=== PATIENT | female | born 1975 | race African-American/Black ===

== ENCOUNTER 2025-02-24 05:24 | Emergency (ER) | payer OTHER, SELFPAY ==
--- NOTE | ~2025-02-24 | CT_ITS ---
CT of the Abdomen and Pelvis: Indication: Left flank pain Technique: 2.5 mm axial scans were obtained through the abdomen and pelvis following intravenous adm inistration of 100 cc of Omnipaque 350. Dose reduction technique was used on this scan by utilizing a utomated exposure control and iterative reconstruction technique. The dose-length product (DLP) was 1 243.57 mGy-cm. Findings: Scans through the lung bases are unremarkable. The liver, spleen, pancreas, gallbladder, adrenals and left kidney are within normal limits. Probable 2 mm nonobstructing right renal stone. No evidence of aortic aneurysm. No lymphadenopathy. No bowel obstruction or bowel wall thickening. There is no evidence to suggest acute appendicitis. Images through the pelvis were performed. Urinary bladder unremarkable. No pelvic mass seen. No ascit es. Impression: 2 mm nonobstructing right renal stone. No acute abnormality seen. Reviewed, dictated and finalized at [facility]. Impression: 2 mm nonobstructing right renal stone. No acute abnormality seen.
[2025-02-24 05:28] VITALS: BP 133/83; PULSE 85; RESP 15; TEMP 36.4; O2SAT 99
[2025-02-24 05:54] LABS: Basophils Absolute Auto 0.1 K/mm3 (0.0-0.1); Basophils Percent Auto 0.8 % (0.2-1.2); Eosinophils Absolute Auto 0.1 K/mm3 (0-0.3); Eosinophils Percent Auto 1.3 % (0-4.4); Hematocrit 35.8 % (37.0-47.0); Hemoglobin 11.3 g/dL (12.0-15.0); Immature Granulocyte Absolute 0.01 K/mm3 (0.00-0.031); Immature Granulocyte Percent A 0.2 % (0-0.5); Lymphocytes Absolute Auto 2.68 K/mm3 (0.9-3.2); Lymphocytes Percent Auto 43.6 % (18.3-44.2); Mean Corpuscular HGB Conc 31.6 g/dl (32-36); Mean Corpuscular Hemoglobin 28.8 pg (26-34); Mean Corpuscular Volume 91.3 fl (80-100); Mean Platelet Volume 10.3 fl (7.4-10.4); Monocytes Absolute Auto 0.9 K/mm3 (0.1-0.6); Neutrophils Absolute Auto 2.5 K/mm3 (1.3-6.7); Neutrophils Percent Auto 40.1 % (45.5-73.1); Platelet Count Result 294 k/mm3 (150-375); Red Blood Count 3.92 M/mm3 (4.2-5.4); Red Cell Distribution Width 12.9 % (11.5-14.5); White Blood Count 6.1 K/mm3 (4.5-10.0)
--- NOTE | 2025-02-24 05:55 | ED_ITS ---
HPI - Abdominal Pain General Chief Complaint: Abdominal Pain <Pamela Eldridge MD - Last Filed: 02/24/25 17:34> Stated Complaint: possible kidney stone <Pamela Eldridge MD - Last Filed: 02/24/25 17:34> Time Seen by Provider: 02/24/25 05:32 <Pamela Eldridge MD - Last Filed: 02/24/25 17:34> Source: patient <Pamela Eldridge MD - Last Filed: 02/24/25 17:34> Mode of arrival: ambulatory <Pamela Eldridge MD - Last Filed: 02/24/25 17:34> Limitations: no limitations <Pamela Eldridge MD - Last Filed: 02/24/25 17:34> History of Present Illness HPI narrative: Patient presents with left flank pain radiating into her abdomen. It is associated with nausea and vomiting. She notes that approximately a week ago she had gastroenteritis that lasted for several days. Her symptoms then resolved and bowel movements started to become formed again on Thursday. This was her last bowel movement. Nonbloody bowel movements and nonbloody emesis. She denies any vaginal discharge or vaginal bleeding. She is postmenopausal, LMP 6 years ago. No hematuria or dysuria. She has had urine urinary frequency increased as well as decreased urine output. Has never seen urologist although previously had a kidney stone. No fevers or chills. She had routine labs performed on Thursday and noted that her GFR was 22. 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 No prior GI including no colonoscopy; used cologuard. 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 HEAD: Normocephalic, atraumatic. EYES: Non injected, non icteric ENT: Nares clear, no rhinorrhea or epistaxis. Gross auditory acuity intact. NECK: Supple. No meningismus. CHEST: Speaking in full sentences. No respiratory distress. HEART: Regular rate and rhythm. . ABDOMEN: Soft, nondistended. No rigidity or guarding. Not peritoneal. No tenderness to palpation throughout. Back/: No CVA tenderness bilaterally. EXTREMITIES: Normal range of motion. No lower extremity edema. SKIN: Warm, dry, no rash. NEURO: No focal deficits. Alert and oriented. Answering questions. Following commands. Normal speech without aphasia or dysarthria. PSYCH: Normal mood and affect. <Pamela Eldridge MD - Last Filed: 02/24/25 17:34> Course Vital Signs Vital signs: Vital Signs Temperature 97.6 F 02/24/25 05:28 Pulse Rate 85 02/24/25 05:28 Respiratory Rate 15 02/24/25 05:28 Blood Pressure 133/83 02/24/25 05:28 Pulse Oximetry 99 02/24/25 05:28 Oxygen Delivery Room Air 02/24/25 05:28 Temperature 97.6 F 02/24/25 05:28 Pulse Rate 72 02/24/25 08:50 Respiratory Rate 18 02/24/25 08:50 Blood Pressure 110/74 02/24/25 08:50 Pulse Oximetry 100 02/24/25 08:50 Oxygen Delivery Room Air 02/24/25 05:28 <Pamela Eldridge MD - Last Filed: 02/24/25 17:34> Vital Signs Temperature 97.6 F 02/24/25 05:28 Pulse Rate 85 02/24/25 05:28 Respiratory Rate 15 02/24/25 05:28 Blood Pressure 133/83 02/24/25 05:28 Pulse Oximetry 99 02/24/25 05:28 Oxygen Delivery Room Air 02/24/25 05:28 Temperature 97.6 F 02/24/25 05:28 Pulse Rate 72 02/24/25 08:50 Respiratory Rate 18 02/24/25 08:50 Blood Pressure 110/74 02/24/25 08:50 Pulse Oximetry 100 02/24/25 08:50 Oxygen Delivery Room Air 02/24/25 05:28 <Javi Webber III, DO - Last Filed: 02/24/25 18:02> MDM - Abdominal Pain MDM Narrative Medical decision making narrative: Patient presents with left flank pain radiating towards her abdomen. In the emergency department they are afebrile with vital signs within normal limits. Creatinine is elevated with no prior for comparison. Patient notes that she had not been told she had any baseline kidney dysfunction however she had been reviewing her labs over this past week and was concerned because it appeared that she was CKD stage IIIB for awhile. Thus, will presume CKD rather than danial NOLAN. No leukocytosis. Normocytic anemia with no prior for comparison. Patient reassessed at approximately 8:00 a.m.. She states her pain is coming back as is her nausea. Kidney stone does not appear appear to be in a location where should be causing pain but possible component of renal colic and/or possibly recently passed a stone. Signed out pending urine and reassessment. <Pamela Eldridge MD - Last Filed: 02/24/25 17:34> Patient presents with left flank pain radiating towards her abdomen. In the emergency department they are afebrile with vital signs within normal limits. Creatinine is elevated with no prior for comparison. Patient notes that she had not been told she had any baseline kidney dysfunction however she had been reviewing her labs over this past week and was concerned because it appeared that she was CKD stage IIIB for awhile. Thus, will presume CKD rather than danial NOLAN. No leukocytosis. Normocytic anemia with no prior for comparison. Patient reassessed at approximately 8:00 a.m.. She states her pain is coming back as is her nausea. Kidney stone does not appear appear to be in a location where should be causing pain but possible component of renal colic and/or possibly recently passed a stone. Signed out pending urine and reassessment. assumed care pending ua. ua unremarkable. will discharge on tramadol with follow up to monitor renal function. <Javi Webber III, DO - Last Filed: 02/24/25 18:02> Differential Diagnosis Differential diagnosis: Likely abdominal pain, calculus of kidney, constipation, diverticulitis, small bowel obstruction and other (Gastroenteritis/colitis/enteritis) <Pamela Eldridge MD - Last Filed: 02/24/25 17:34> Lab Data Attestation: I reviewed the patient's lab results. <Pamela Eldridge MD - Last Filed: 02/24/25 17:34> Result diagrams: 02/24/25 05:47 02/24/25 05:47 <Pamela Eldridge MD - Last Filed: 02/24/25 17:34> Labs: Lab Results 02/24/25 02/24/25 Range/Units 05:47 07:44 WBC 6.1 (4.5-10.0) K/mm3 RBC 3.92 L (4.2-5.4) M/mm3 Hgb 11.3 L (12.0-15.0) g/dL Hct 35.8 L (37.0-47.0) % MCV 91.3 (80-100) fl MCH 28.8 (26-34) pg MCHC 31.6 L (32-36) g/dl RDW 12.9 (11.5-14.5) % Plt Count 294 (150-375) k/mm3 MPV 10.3 (7.4-10.4) fl Immature Gran % (Auto) 0.2 (0-0.5) % Neut % (Auto) 40.1 L (45.5-73.1) % Lymph % (Auto) 43.6 (18.3-44.2) % Mccracken % (Auto) 14.0 H (2.6-8.5) % Eos % (Auto) 1.3 (0-4.4) % Baso % (Auto) 0.8 (0.2-1.2) % Lymph # (Auto) 2.68 (0.9-3.2) K/mm3 Mccracken # (Auto) 0.9 H (0.1-0.6) K/mm3 Eos # (Auto) 0.1 (0-0.3) K/mm3 Baso # (Auto) 0.1 (0.0-0.1) K/mm3 Abs Immat Gran (auto) 0.01 (0.00-0.031) K/mm3 Absolute Neuts (auto) 2.5 (1.3-6.7) K/mm3 Absolute Nucleated RBC 0.000 (0.0-0.012) K/mm3 Nucleated RBC % 0.0 (0.0-0.2) % Sodium 140 (137-145) mmol/L Potassium 3.9 (3.4-5.0) mmol/L Chloride 103 (98-107) mmol/L Carbon Dioxide 27 (22-30) mmol/L Anion Gap 10 (4-12) mmol/L BUN 26 H (7-17) mg/dL Creatinine 1.42 H (0.7-1.0) mg/dL Estim Creat Clear Calc 48 ml/min Estimated GFR 39 L (59 - ) Glucose 102 (65-110) mg/dL Calcium 9.8 (8.4-10.2) mg/dL Magnesium 1.9 (1.6-2.3) mg/dL Total Bilirubin 0.3 (0.2-1.3) mg/dL AST 35 (14-36) U/L ALT 29 (6-35) U/L Alkaline Phosphatase 101 (38-126) U/L Total Protein 8.0 (6.3-8.2) g/dL Albumin 4.7 (3.5-5.1) g/dL Lipase 145 (23-300) U/L Urine Color Yellow (Yellow) Urine Appearance Clear (Clear) Urine pH 6.0 (5.0-9.0) Ur Specific Cosmos > 1.045 H (1.001-1.035) Urine Protein Negative (Negative) mg/dL Urine Glucose (UA) Negative (Negative) mg/dL Urine Ketones Negative (Negative) mg/dL Ur Blood (Man) Negative (Negative) Urine Nitrate Negative (Negative) Urine Bilirubin Negative (Negative) Urine Urobilinogen 0.2 (<2.0) mg/dL Leukocyte Esterase Rfl Negative (Negative) ANTHONY/UL <Pamela Eldridge MD - Last Filed: 02/24/25 17:34> Lab Results 02/24/25 02/24/25 Range/Units 05:47 07:44 WBC 6.1 (4.5-10.0) K/mm3 RBC 3.92 L (4.2-5.4) M/mm3 Hgb 11.3 L (12.0-15.0) g/dL Hct 35.8 L (37.0-47.0) % MCV 91.3 (80-100) fl MCH 28.8 (26-34) pg MCHC 31.6 L (32-36) g/dl RDW 12.9 (11.5-14.5) % Plt Count 294 (150-375) k/mm3 MPV 10.3 (7.4-10.4) fl Immature Gran % (Auto) 0.2 (0-0.5) % Neut % (Auto) 40.1 L (45.5-73.1) % Lymph % (Auto) 43.6 (18.3-44.2) % Mccracken % (Auto) 14.0 H (2.6-8.5) % Eos % (Auto) 1.3 (0-4.4) % Baso % (Auto) 0.8 (0.2-1.2) % Lymph # (Auto) 2.68 (0.9-3.2) K/mm3 Mccracken # (Auto) 0.9 H (0.1-0.6) K/mm3 Eos # (Auto) 0.1 (0-0.3) K/mm3 Baso # (Auto) 0.1 (0.0-0.1) K/mm3 Abs Immat Gran (auto) 0.01 (0.00-0.031) K/mm3 Absolute Neuts (auto) 2.5 (1.3-6.7) K/mm3 Absolute Nucleated RBC 0.000 (0.0-0.012) K/mm3 Nucleated RBC % 0.0 (0.0-0.2) % Sodium 140 (137-145) mmol/L Potassium 3.9 (3.4-5.0) mmol/L Chloride 103 (98-107) mmol/L Carbon Dioxide 27 (22-30) mmol/L Anion Gap 10 (4-12) mmol/L BUN 26 H (7-17) mg/dL Creatinine 1.42 H (0.7-1.0) mg/dL Estim Creat Clear Calc 48 ml/min Estimated GFR 39 L (59 - ) Glucose 102 (65-110) mg/dL Calcium 9.8 (8.4-10.2) mg/dL Magnesium 1.9 (1.6-2.3) mg/dL Total Bilirubin 0.3 (0.2-1.3) mg/dL AST 35 (14-36) U/L ALT 29 (6-35) U/L Alkaline Phosphatase 101 (38-126) U/L Total Protein 8.0 (6.3-8.2) g/dL Albumin 4.7 (3.5-5.1) g/dL Lipase 145 (23-300) U/L Urine Color Yellow (Yellow) Urine Appearance Clear (Clear) Urine pH 6.0 (5.0-9.0) Ur Specific Cosmos > 1.045 H (1.001-1.035) Urine Protein Negative (Negative) mg/dL Urine Glucose (UA) Negative (Negative) mg/dL Urine Ketones Negative (Negative) mg/dL Ur Blood (Man) Negative (Negative) Urine Nitrate Negative (Negative) Urine Bilirubin Negative (Negative) Urine Urobilinogen 0.2 (<2.0) mg/dL Leukocyte Esterase Rfl Negative (Negative) ANTHONY/UL <Javi Webber III, DO - Last Filed: 02/24/25 18:02> Imaging Data Radiologist's impression: ITS Impressions Abdomen/Pelvis CT 02/24/25 06:28 Impression: 2 mm nonobstructing right renal stone. No acute abnormality seen. <Pamela Eldridge MD - Last Filed: 02/24/25 17:34> ITS Impressions Abdomen/Pelvis CT 02/24/25 06:28 Impression: 2 mm nonobstructing right renal stone. No acute abnormality seen. <Javi Webber III, - Last Filed: 02/24/25 18:02> Discharge Plan Discharge Clinical Impression: CKD (chronic kidney disease), Normocytic anemia, Right renal stone, Renal colic <Pamela Eldridge MD - Last Filed: 02/24/25 17:34> Patient Disposition: Home <Pamela Eldridge MD - Last Filed: 02/24/25 17:34> Condition: Stable <Pamela Eldridge MD - Last Filed: 02/24/25 17:34> Instructions: Antibiotic Form, Kidney Stones (ED), Renal Colic (ED) <Pamela Eldridge MD - Last Filed: 02/24/25 17:34> Patient Language: Namibian <Pamela Eldridge MD - Last Filed: 02/24/25 17:34> Prescriptions: New tramadol 50 mg tablet 50 mg PO Q6H PRN (Reason: pain) Qty: 10 0RF <Pamela Eldridge MD - Last Filed: 02/24/25 17:34> Follow-up/Referrals: Kaz,Karlie Colney [employer]SEMBLER [Primary Care Provider] - <Pamela Eldridge MD - Last Filed: 02/24/25 17:34> Stand Alone Forms: Work/School Release IP <Pamela Eldridge MD - Last Filed: 02/24/25 17:34>
[2025-02-24 06:03] LABS: Alanine Aminotransferase 29 U/L (6-35); Albumin Level 4.7 g/dL (3.5-5.1); Alkaline Phosphatase 101 U/L (38-126); Anion Gap 10 mmol/L (4-12); Aspartate Amino Transferase 35 U/L (14-36); Bilirubin,Total 0.3 mg/dL (0.2-1.3); Blood Urea Nitrogen 26 mg/dL (7-17); Calcium 9.8 mg/dL (8.4-10.2); Carbon Dioxide 27 mmol/L (22-30); Chloride 103 mmol/L (98-107); Estimated CRCL calculation 48 ml/min; Estimated Glomerular Filt Rate 39; Glucose 102 mg/dL (65-110); Lipase 145 U/L (23-300); Potassium 3.9 mmol/L (3.4-5.0); Sodium 140 mmol/L (137-145)
[2025-02-24] MEDS: ONDANSETRON INJ 4 MG/2 ML VIAL IV PUSH (06:08)
--- OUTSIDE RECORDS SUMMARY | 2025-02-24 06:09 | XMS_ITS | Encounter Summary ---
Author Organization [facility] Address 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 Name Role Phone Unavailable Primary Care Provider Unavailabl e Encounter Details Date Type Department Care Team (Late st Contact Info) Description 09/09/2002 Outpatient Historical [facility] Maternal and Ground Floor [address] [facility] [address] [place] [address] Lilia Ford MD [address] [place] [address] Social History Tobacco Use Types Packs/Day Years Used Date Smoking Tobacco: Never Assessed Comments Unknown Sex and Gender Information Value Date Recorded Sex Assigned at Not on file Legal Sex Female 4:21 AM [employer]VE[employer] Gender Identity Not on file Sexual Orientation Not on file documented as of this encounter Plan of Treatment Not on file documented as of this encounter Visit Diagnoses Not on filedocumented in this encounter
--- OUTSIDE RECORDS SUMMARY | 2025-02-24 06:09 | XMS_ITS | Clinical Summary ---
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 Name Role Phone Unavailable Primary Care Provider Unavailabl e Encounters Date Type Department Care Team Description 02/21/2025 External Device Data [facility] ABSTRACTION Provider, Abstract 01/17/2025 External Device Data [facility] ABSTRACTION Provider, Abstract 12/21/2024 External Device Data [facility] ABSTRACTION Provider, Abstract 12/13/2024 External Device Data [facility] ABSTRACTION Provider, Abstract 12/13/2024 External Device Data [facility] ABSTRACTION Provider, Abstract 12/10/2024 External Device Data [facility] ABSTRACTION Provider, Abstract 12/09/2024 External Device Data [facility] ABSTRACTION Provider, Abstract 12/06/2024 External Device Data ST[facility] ABSTRACTION Provider, Abstract from Last 3 Months Social History Tobacco Use Types Packs/Day Years Used Date Smoking Tobacco: Never Assessed Comments Unknown Sex and Gender Information Value Date Recorded Sex Assigned at Not on file 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
--- OUTSIDE RECORDS SUMMARY | 2025-02-24 06:09 | XMS_ITS | CONTINUITY OF CARE DOCUMENT ---
Author Name eduardo debbiejerzy Address Unknown Organization [facility] Address [address] [place] [address] [address] [place] [address] Phone [phone] Care Team Providers Care Strip Mine Supervisor Name Role Phone Jesus PORTILLO, Angel Unavailable [phone] WINIFRED WOLF MD Unavailable [phone] WINIFRED WOLF MD Unavailable PROBLEMS Condition Status Date Provider Notes H/o Chronic DVT, LLE completed - Muse esther Lee MD HTN active Jose Sylvester MD Hypercoagulable state active Jose Sylvester MD Acute DVT of leg, right active Angel Lee MD Pulmonary embolism active Angel Lee MD Fatigue active Sravani oNrton RN Palpitations active Sravani Norton RN ENCOUNTERS Date Type Provider Location Encounter Diag nosis - In-person encounter Office Visit [facility] - In-person encounter Office Visit [facility] - In-person encounter Office Visit [facility] Palpitations - In-person encounter Office Visit [facility] Fatigue - In-person encounter Office Visit [facility] H/o Chronic DVT, LLE Acute DVT of leg, rightPulmonary embolism - In-person encounter Office Visit Jose Sylvester MD [facility] HTNHypercoagulable state VITAL SIGNS Date Observation Value Provider Body Mass Index (Ratio) 32.95 kg/m2 Sund rafita Lee MD blood pressure, diastolic 95 mm[Hg] Ke rri Gruenenfelder blood pressure, systolic 127 mm[Hg] Ker ri Gruenenfelder blood pressure, cuff size large Ke rri Gruenenfelder oxygen saturation, oximetry 98 % Jenn Zak respiratory rate E&M 14 /min Jenn Cony brantleyenesuhaseldann-marie pulse rate 75 /min Jenn Gruenenfe lder weight E&M 198 [lb_av] Jenn Grlucianonenfe lder height E&M 65 [in_i] Jenn Meiruenenfe er Body Mass Index (Ratio) 36.27 kg/m2 Sund rafita Lee MD blood pressure, cuff size large Blaire winchester [place] blood pressure, diastolic 80 mm[Hg] Blaire [place]ster [place] blood pressure, systolic 120 mm[Hg] [facility] sharon [place] oxygen saturation, oximetry 98 % Camila Pete respiratory rate E&M 16 /min Janet Pete pulse rate 82 /min Camila ritter weight E&M 218 [lb_av] Camila ritter height E&M 65 [in_i] Camila ritter Body Mass Index (Ratio) 36.27 kg/m2 Ernesto Norton RN pulse rate 84 /min Ness Block blood pressure, diastolic 80 mm[Hg] Br ittany Block blood pressure, systolic 130 mm[Hg] Angelica ttany Block oxygen saturation, oximetry 97 % Ness Fan weight E&M 218 [lb_av] Ness Mita blood pressure, resting No Tosin Fan respiratory rate E&M 16 /min Britoscar haynes Block height E&M 65 [in_i] Ness Fan Body Mass Index (Ratio) 37.04 kg/m2 Susannahr panchito Norton RN blood pressure, diastolic, standing 80 mm [Hg] Alma Shrestha blood pressure, systolic, standing 100 mm [Hg] Alma Henrietta blood pressure, diastolic 70 mm[Hg] Rh onda [place] blood pressure, systolic 110 mm[Hg] Rho nda [place] blood pressure, cuff size regular Rh onedin [place] oxygen saturation, oximetry 98 % Alma Shrestha respiratory rate E&M 16 /min Alma Shrestha pulse rate 77 /min Alma Shrestha weight E&M 222.6 [lb_av] Alma Shrestha height E&M 65 [in_i] Alma Shrestha Body Mass Index (Ratio) 38.44 kg/m2 Dave Lee MD blood pressure, diastolic 62 mm[Hg] Rh onda [place] blood pressure, systolic 120 mm[Hg] Rho nda [place] blood pressure, cuff size regular Rh onedin [place] oxygen saturation, oximetry 97 % Alma Shrestha respiratory rate E&M 16 /min Almavivien Shrestha pulse rate 89 /min Alma Shrestha weight E&M 231 [lb_av] Alma Shrestha height E&M 65 [in_i] Alma Shrestha blood pressure, diastolic 86 mm[Hg] Ak andrew Hi blood pressure, systolic 118 mm[Hg] Rosemarie brownvivien Do pulse rate 71 /min Winifred Hi oxygen saturation, oximetry 98 % Winifred Do respiratory rate E&M 16 /min Winifred Do Body Mass Index (Ratio) 35.91 kg/m2 Oralia Do height E&M 65 [in_i] Winifred Do weight E&M 215.8 [lb_av] Winifred Do ALLERGIES No Known Drug Allergies HISTORY OF MEDICATION USE Medication Status Instructions Dates Provider Indications Com ments Ozempic 0.25 mg or 0.5 mg(2 mg/1.5 mL) pen injector active Annabelle A Manpreet [employer]IAN olmesartan-hydro chlorothiazide 40-25 mg tablet active Annabelle A Case [employer]ICIAN Xarelto 20 mg tablet active 2 tablet by mouth once a day 1 Angel Lee MD bupropion HCl 300 mg tablet extended release 24 hr active tablet by mouth once a day Camila Pete diclofenac potassium unspecified unspecified active tablet by mouth twice a day Camila Pete Hyzaar 100-25 mg tablet completed 1 tablet by mouth once a day 4 - 0 Annabelle Case [employer]CH[employer]ICIAN Xarelto 15 mg tablet completed 2 tablet by mouth once a day 4 - 1 Alma Shrestha ASPIRIN 325 MG ORAL TABLET completed once daily - 4 Alma Shrestha BENICAR HCT 40-25 MG ORAL TABLET completed one tablet once daily - 4 Alma Shrestha SOCIAL HISTORY Date Observation Value Provider smoking status Never smoker Jenn engel smoking status Never smoker Camila Pan social history reviewed E&M revi ewed - no changes required Sravani Norton RN smoking status Never smoker Ness woody social history reviewed E&M revi ewed - no changes required Angel Lee MD smoking status Never smoker Alma Shrestha smoking status Never smoker Alma Shrestha social history E&M Alcohol Use - no D rug Use - no Smoking History: P atient has never smoked. Jose Sylvester MD drug use no Jose Ritter alcohol use no Jose Ritter social history reviewed E&M eugene gracia - no changes required Jose Sylvester MD smoking status Never smoker Winifred Do FAMILY HISTORY Family Member Condition Full Brother Family History of Bl ood Clots Father Family History of Hy pertension Father Family History of Al coholism Mother Family History of Hy pertension Mother Family History of Al coholism Maternal Grandmother Family History of S troke/CVA INSURANCE PROVIDERS Payer name Policy type / Coverage type [place] red libertarian ID [facility] [id number] ADVANCE DIRECTIVES Name Date LIVING WILL ON FILE TREATMENT PLAN Date Name Performer [id number],C, B P today: 127/95 P rior BP: 120/80 (07/15/2021) Annabelle Case [employer] TECH[employer]ICIAN [id number],C, L LE edema ,chronic d enies RLE edema Annabelle Case NP [id number],C, on oac d oing well Annabelle A Manpreet BAUTISTA [id number],S,M tHfR insufficienycy o n oac d oing well Annabelle Mclain Case [employer]CH[employer]ICIAN [id number],S, S he has episodes of tachycardia every few months and her heart rate goes up to 120 at rest and 190 with activity and lasts for a few days. Her [facility] watch tracings were reviewed and looks like a sinus tachycardia. e pidsodes are 2-3 x per month last an average of 30minutes. a ppear much improved and will leave it be. Annabelle Case NP [id number],C,wc Angel Edin lundberg MD [id number],C,o n oac d oing well Angelrafita Lee MD [id number],C, S he has another surgery 2019 and was off oac and this time she did fine. o n oac d oing well Angel Lee MD [id number],C,S he has episodes of tachycardia every few months and her heart rate goes up to 120 at rest and 190 with activity and lasts for a few days. Her [employer] watch tracings were reviewed and looks like a sinus tachycardia. could be snrt o ptions of rx - leave it be vs dig (has low bp and this may be a good choice) or eps or AAD with 1c agent d/wpt s he wishes to leave it be for now as these episodes are infrequent Angelleilani Lee MD Cardiology: B P today: 127/95 P rior BP: 120/80 (07/15/2021) Annabelle Case NP Cardiology: L LE edema ,chronic d enies RLE edema Annabelle Case NP Cardiology: on oac stone cravenfloyd casa Case NP Cardiology:MtHfR ins ufficienycy o n oac stone cormier Annabelle Case NP Cardiology: S he has episodes of tachycardia every few months and her heart rate goes up to 120 at rest and 190 with activity and lasts for a few days. Her [employer] watch tracings were reviewed and looks like a sinus tachycardia. e pidsodes are 2-3 x per month last an average of 30minutes. a ppear much improved and will leave it be. Annabelle Case NP Cardiology:wc Angel Lee MD Cardiology:on oac stone cravenfloyd casa Lee MD Cardiology: S he has another surgery 2019 and was off oac and this time she did fine. o n oac stone Lee MD Cardiology:She has e pisodes of tachycardia every few months and her heart rate goes up to 120 at rest and 190 with activity and lasts for a few days. Her [employer] watch tracings were reviewed and looks like a sinus tachycardia. could be snrt o ptions of rx - leave it be vs dig (has low bp and this may be a good choice) or eps or AAD with 1c agent d/wpt s he wishes to leave it be for now as these episodes are infrequent Angel Lee MD Cardiology: H er updated medication list for this problem includes: Hyzaar 100-25 Mg Oral Tablet (Losartan potassium-hctz) ..... 1 tab daily Sravani Norton RN Cardiology:to have a nkle surgery h x of pe with last surgery on holding oac o k to have surgery but needs to be off xarelto only two days preop and resume right after Sravani Norton RN Cardiology:on oac Sravani Diana on RN Cardiology:She has h ad episodes dizziness with tachycardia and hr of 120-130 - usalluy lasts 2-3 days and then resolves. Last episode was 02/21. She thinks its due to PE. r ecommend ekg at time of sx or apple watch Sravani Norton RN Cardiology:cbc, tsh, vit d, ferritin, esr, iron sats, d dimer, ebv, rich, folate, hb A1c, crp, RF normal B 12 305 c a 10.5 a dvised to get B12 po 2000 mg once daily and recheck in 2 months a lso check pth levels a lso will do ihs Angel Lee MD Cardiology:LLE edema ,chronic d enies RLE edema Angel Lee MD Cardiology:She had a n episode 02/2019 where she felt chest pressure, SOB, fatigue. CTA (per pt) showed some shadowing, inconclusive study. The next day, she felt 100% better and CTA looked completely clear. 02/2019 echo showed normal LVEF, normal atrial size bilaterally, normal RV, PA 28. 3 weeks ago, she started feeling bad again. She felt dizzy in shower, sat down after shower and started feeling better. Stood up and almost passed out. Vision went woodward. Denies syncope. Ever since then, she is getting dizzy easily, HR goes up quickly with exertion, baseline HR higher by 20 points than it used to be, feels like she can't quite get a good deep breath in, mild chest pressure. Most of these symptoms occur with exertion. echo today showed normal study d dimer in 04/22 was 0.19 Angel Lee MD Cardiology:continues on xarelto Angel Lee MD Cardiology:BP today: 110/70 P rior BP: 120/62 (12/06/2018) Angel Lee MD Cardiology:PE, DVT p ost foot and ankle surgery - was off oac and was on asa alone when this happene Angel Lee MD Cardiology:PE, DVT p ost foot and ankle surgery - was off oac and was on asa alone when this happened- hx of hypercoagulability with MTHFR deficiency Angel Lee MD Cardiology:PE, DVT p ost foot and ankle surgery - was off oac and was on asa alone when this happened s ob 60% better s till cant carry a laundry basket up a flight of stairs S till tachycardic B P ok echo in 6 months Angel Lee MD Hem/Onc:The patient has had one confirmed provoked DVT and another uncomfirmed provoked DVT. The patient states that she had a hypercoaguable work up prior and was homozygous for MTHFR gene mutation. Recent studies have shown little evidence of associated link between MTHFR mutation and thrombosis risk. I have asked her to bring these records in for review. Given her recurrent loss, I will evaluate for possible antiphospholipid syndrome. She will continue baby ASA for now. Orders: L UPUS ANTICOAGULANT EVALUATION WITH REFLEX ([id number]) A nticardiolipin Ab, IgG, Qn (960663) A nticardiolipin Ab, IgM, Qn (246062) A nticardiolipin Ab, IgA, Qn (971210) B eta-2 Glycoprotein I Ab, IgA (917434) B eta-2 Glycoprotein I Ab, IgG (699456) B eta-2 Glycoprotein I Ab, IgM (714702) 9 9244 MOD C omplex ([id number]) Jose Sylvester MD Date Name Beta-2 Glycoprotein I Ab, IgM Beta-2 Glycoprotein I Ab, IgG Beta-2 Glycoprotein I Ab, IgA Anticardiolipin Ab, IgA, Qn Anticardiolipin Ab, IgM, Qn Anticardiolipin Ab, IgG, Qn LUPUS ANTICOAGULANT EVALUATION WITH REFLEX HISTORY OF PROCEDURES Procedure Date Procedure Name Provider Procedure Notes S tatus EKG Angelrafita Lee MD completed EKG Angel Lee MD completed EKG Angel Lee MD completed EKG Angelrafita Lee MD completed EKG Angelrafita Lee MD completed SNOMED-CT: [id number] Current Medications Documented Jose Sylvester MD completed
--- OUTSIDE RECORDS SUMMARY | 2025-02-24 06:09 | XMS_ITS | Clinical Summary ---
Author Organization [facility] Address [address] [place] [address] Care Team Providers Care Restaurant Floor Manager Name Role Phone Robby Berman MD Unavailable [phone] Araceli Duque MD Unavailable [phone] Valerie Schilling MD Unavailable [phone] Amador Abraham OD Unavailable [phone] Jade Moss MD Primary Care Provider [phone] Source Comments [facility],non-owned Affiliates and Associated Physician Practices is amultiple site organization consisting of ambulatory clinics and hospital sitesin [place], [place], [place] and [place]. This disclosure is being madepursuant to the Care Everywhere program and may not contain all information available regarding this patient. Last updated 18.[facility] Allergies Active Allergy Reactions Criticality Noted Date Comments Adhesive Sensitivity 10/17/2014 Medications * Be aware that medications may not be up to date on this document. Alwaysverify current medications with the patient. multivitamin daily (THERAGRAN) tablet Take 1 Tab by mouth daily with food. Active losartan-hydroc hlorothiazide (HYZAAR) 100-25 MG tablet 6 Active triamcinolone acetonide (KENALOG) 0.1 % ointment APPLY 1 APPLICATION(S) TWICE A DAY BY TOPICAL ROUTE NEEDED. 2 6 Active aspirin (ASPIRIN) 325 MG tablet Take 325 mg by mouth once daily Active Glucosamine-Cho ndroitin (GLUCOSAMINE CHONDR COMPLEX PO) Active oxyCODONE-aceta minophen (PERCOCET) 5-325 MG tablet Take 1 Tab by mouth every 4 hours as needed for Pain 30 Tab 0 6 Active Additional Information Patient not taking.Reported on 08/03/2017 progesterone micronized (PROMETRIUM) 200 MG capsule TAKE 1 TAB BY MOUTH EVERYDAY X 14 DAYS THEN 14 DAYS OFF 4 7 Active benzonatate (TESSALON) 100 MG capsule 7 Active montelukast (SINGULAIR) 10 MG tablet TAKE 1 TABLET(S) EVERY DAY BY ORAL ROUTE. 0 7 Active buPROPion XL 24hr (WELLBUTRIN-XL) 300 MG tablet Take 300 mg by mouth once daily 1 Active XARELTO 20 MG tablet 1 Active diclofenac sodium EC (VOLTAREN) 75 MG tablet 1 Active Active Problems Problem Noted Date Diagnosed Date Elevated glucose 04/05/2014 Preoperative examination 02/12/2012 Disorder of joint of pelvic region and thigh Overview (07/05/2015): Hip pain 01/16/2012 Sprain of ankle 01/16/2012 Overview (07/05/2015): Ankle pain, right 03/21/2011 Contact dermatitis 05/03/2010 DVT (deep venous thrombosis) 01/10/2010 Overview (01/10/2010): Due to bcp's and an injury. Environmental allergies 01/10/2010 HTN (hypertension) 02/06/2009 Overview (01/10/2010): Dr. Antonella Qureshi 02/06/2009 Overview (01/10/2010): Heavy periods and diet related. Resolved Problems Problem Noted Date Diagnosed Date Resolved Date DVT (deep venous thrombosis) 02/06/2009 01/10/2010 Overview (02/06/2009): 2000 Post depression 02/06/200903/05 Immunizations Immunization Administration Dates Next Due DT 02/02/2005 INFLUENZA A [id number] VACCINE 08/05/2009 INFLUENZA VACCINE 07/05/2009,08/05/2006 TDAP (7yrs+) 10/05/2005 Family History Medical History Relation Name Comments Hypertension Brother CAD (Coronary Artery Disease) Father Hypertension Father Relation Name Status Comments Brother Father Social History Tobacco Use Types Packs/Day Years Used Date Smoking Tobacco: Never Smokeless Tobacco: Never Alcohol Use Standard Drinks/Week Comments Yes 0 (1 standard drink = 0.6 oz pur e alcohol) socially Comments No Sex and Gender Information Value Date Recorded Sex Assigned at Not on file Legal Sex Female 4:24 AM MATHEMATICS PROFESSOR Gender Identity Not on file Sexual Orientation Not on file 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 [employer] Not on file Not on file Not on fi le Not on file Not on file Not on file Not on file Last Filed Vital Signs Vital Sign Reading Time Taken Comments Blood Pressure 130/78 03/25/2021 4:29 PM CDT Pulse 89 09/14/2017 1:07 PM MATHEMATICS PROFESSOR Temperature 35.9 C (96.6 F) 06/30/2016 8:59 AM CDT Respiratory Rate 16 06/30/2016 9:55 AM CDT Oxygen Saturation 97% 06/30/2016 9:55 AM CDT Inhaled Oxygen Concentration - - Weight 97.1 kg (214 lb) 03/25/2021 4:29 PM CDT Height 162.6 cm (5' 4 ) 03/25/2021 4:29 PM CDT Body Mass Index 36.73 03/25/2021 4:29 PM CDT Plan of Treatment Health Maintenance Due Date Last Done Comments COLOGUARD (AGES 45-75) - COLON CA SCREENING 1973 COLON MONITORING 1973 COLONOSCOPY - COLON CA SCREENING 1973 CT COLONOGRAPHY - COLON CA SCREENING 1973 Colorectal Cancer Screening 1973 FIT - COLON CA SCREENING 1973 FLEX SIG - COLON CA SCREENING 1973 HEPATITIS C SCREENING 08/10/1991 HEPATITIS B VACCINE (1 of 3 - 19+ 3-dose series) 1992 DTAP/TDAP/TD VACCINES (3 - Td or Tdap) 10/05/2015 10/05/2005, 02/02/2005 MAMMOGRAM 05/14/2018 05/14/2016, 11/06/2014 LIPID TESTING 04/04/2019 04/04/2014, 03/2012, 01/10/2010 SCREENING FOR DIABETES 03/25/2021 6, 04/04/2014, 04/04/2014, Additional history exists PNEUMOCOCCAL VACCINE 50+ (1 of 1 - PCV) 2023 ZOSTER VACCINE (1 of 2) 2023 COVID-19 VACCINE (1 - season) 2024 DEPRESSION SCREENING 10/05/2024 INFLUENZA VACCINE (Season Ended) 2025 08/05/2009, 07/05/2009, 08/05/2006 PAP with HPV 03/25/2026 03/25/2021, 07/07, 03/05/2016, Additional history exists HIV SCREENING Completed 12/02/2013 HIB VACCINE Aged Out No longer eligi ble based on patient's age to complete this topic HPV VACCINE Aged Out No longer eligi ble based on patient's age to complete this topic MENINGOCOCCAL (Group B) VACCINE SHARED DECISION-MAKING Aged Out No longer eligible based on patient's age to complete this topic MENINGOCOCCAL GROUPS A/C/Y/W VACCINE Aged Out No longer eligible based on patient's age to complete this topic Procedures Procedure Name Priority Date/Time Associated Diagnosis Comments PAP IG LB +HPV APTIMA REFLEX 16,18/45 Routine 03/25/2021 4:31 PM CDT Well female exam with routine gynecological exam Special screening examination for human papillomavirus (HPV) MAMMOGRAPHY ORDER Routine 05/14/2016 COMPREHENSIVE METABOLIC PANEL STAT 10/21/2015 4:35 AM MATHEMATICS PROFESSOR LIPID PROFILE Routine 04/04/2014 11:17 AM CDT Lipid screening HIV-1 HIV-2 ANTIBODY Routine 12/02/2013 10:03 AM MATHEMATICS PROFESSOR Anemia, unspecified from Last 3 Months or Most Recently Relevant to Health Maintenance Results * (ABNORMAL) PAP IG LB +HPV APTIMA REFLEX 16,18/45 (03/25/2021 4:31 PM CDT) Diagnosis (A) [facility] ACCOUNT BILL Comment: EPITHELIAL CELL ABNORMALITY. ATYPICAL SQUAMOUS CELLS OF UNDETERMINED SIGNIFICANCE (ASC-US). Recommendation (A) [facility] ACCOUNT BILL Comment:Suggest follow up as clinically appropriate. Specimen Adequacy [facility] ACCOUNT BILL Comment: Satisfactory for evaluation. Endocervical and/or squamous metaplastic cells (endocervical component) are present. Clinician Provided ICD10 [facility] ACCOUNT BILL Comment: Z01.419 Z11.51 Performed by [facility] ACCOUNT BILL Comment:Jose Alejandro Hernandez totechnologist Electronically Signed by [facility] ACCOUNT BILL Comment:Dominick Price MD, Pa thologist Comment . [facility] ACCOUNT BILL Pathologist Provided ICD10 [facility] ACCOUNT BILL Comment:R87.610 Note [facility] ACCOUNT BILL Comment: The Pap smear is a screening test designed to aid in the detection of premalignant and malignant conditions of the uterine cervix. It is not a diagnostic procedure and should not be used as the sole means of detecting cervical cancer. Both false-positive and false-negative reports do occur. . IGLBP CPT Code Automation [facility] ACCOUNT BILL Comment: This liquid based ThinPrep(R) pap test was screened with the use of an image guided system. Human papillomavirus Aptima Negative Negative [facility] ACCOUNT BILL Comment: This nucleic acid amplification test detects fourteen high-risk HPV types (16,18,31,33,35,39,45,51,52,56,58,59,66,68) without differentiation. PART OF UTERINE CERVIX / Unknown 03/25/2021 4:31 PM CDT 03/26/2021 Narrative [facility] ACCOUNT BILL - 03/27/2021 6:07 PM CDT Source.............Cervix;Endocervix No. of containers..01 ThinPrep Vial Resulting Agency Comment Lab Testing performed at: [facility] [id number] us Peg King MD LAB - PATHOLOGY/CYTOLOGY ORDER HARDIK Final Result [facility] ACCOUNT BILL [address] [place] [address] * MAMMOGRAPHY ORDER (05/14/2016) Anatomical Region Laterality Modality Other us Henrietta Morataya BIOFUELS PRODUCT DEVELOPMENT MANAGER-NUCLEAR PHYSICIAN MAMMO ORDERABLES Final Re sult * (ABNORMAL) COMPREHENSIVE METABOLIC PANEL (10/21/2015 4:[address] [facility]) Glucose 99 74 - 106 mg/dL 10/21/2015 5:01 AM [facility] Sodium 138 136 - 145 mmol/L 10/21/2015 5:01 AM [facility] Potassium 3.7 3.5 - 5.1 mmol/L 10/21/2015 5:01 AM [facility] Chloride 104 98 - 107 mmol/L 10/21/2015 5:01 AM [facility] CO2 28 22 - 31 mmol/L 10/21/2015 5:01 AM [facility] Calcium 8.6 8.5 - 10.1 mg/dL 10/21/2015 5:01 AM [facility] Anion Gap 6 5 - 20 mmol/L 10/21/2015 5:01 AM [facility] BUN 14 7 - 21 mg/dL 10/21/2015 5:01 AM [facility] Creatinine 1.10 0.50 - 1.30 mg/dL 10/21/2015 5:01 AM [facility] Alkaline Phosphatase 86 38 - 126 U/L 10/21/2015 5:01 AM [facility] ALT 26 12 - 78 U/L 10/21/2015 5:01 AM [facility] AST 21 5 - 40 U/L 10/21/2015 5:01 AM [facility] Protein Total 7.8 6.4 - 8.2 gm/dL 10/21/2015 5:01 AM [facility] Albumin 3.9 3.4 - 5.0 gm/dL 10/21/2015 5:01 AM [facility] Bilirubin Total 0.1(L) 0.2 - 1.0 mg/dL 10/21/2015 5:01 AM [facility] eGFR by MDRD 54(L) >60 mL/min/1.7 3m2 10/21/2015 5:01 AM [facility] eGFR by MDRD >60 >60 mL/min/1.7 3m2 10/21/2015 5:01 AM [facility] Blood BLOOD SPECIMEN / Unknown 10/21/2015 4:35 AM MATHEMATICS PROFESSOR 10/21/2015 4:41 AM MATHEMATICS PROFESSOR Joselo Rose MD LAB - CHEMISTRY ORDERABLES Fi nal Result [facility] [address] [place] [address] * LIPID PROFILE (04/04/2014 11:17 AM CDT) Cholesterol 182 100 - 199 mg/dL [facility] ACCOUNT BILL Triglycerides 99 0 - 149 mg/dL [facility] ACCOUNT BILL HDL Cholesterol 68 >39 mg/dL [facility] ACCOUNT BILL Comment: According to ATP-III Guidelines, HDL-C >59 mg/dL is considered a negative risk factor for CHD. VLDL Calculated 20 5 - 40 mg/dL [facility] ACCOUNT BILL LDL Calculated 94 0 - 99 mg/dL [facility] ACCOUNT BILL Comment NOT NEEDED [facility] ACCOUNT BILL Comment:Ancillary determined the test is not needed Blood specimen (specimen) BLOOD SPECIMEN / Unknown 04/04/2014 11:17 AM CDT 04/04/2014 12:43 PM CDT Narrative Resulting Agency Comment [facility] [address] [place] [id number] Vaishali Truong MD LAB - CHEMISTRY ORDERABLES Fin al Result Performing Organization Address City/[facility] Co de Phone Number [facility] ACCOUNT BILL [address] [place] [address] * HIV-1 HIV-2 ANTIBODY (12/02/2013 10:03 AM MATHEMATICS PROFESSOR) HIV-1 Antibody O.D. Ratio <1.00 <1.00 [facility] INSURANCE BILL Comment:Index Value: Specime n reactivity relative to the negative cutoff. HIV-1/HIV-2 Non Reactive Non Reactive [facility] INSURANCE BILL Blood specimen (specimen) BLOOD SPECIMEN / Unknown 12/02/2013 10:03 AM MATHEMATICS PROFESSOR 12/02/2013 12:58 PM MATHEMATICS PROFESSOR Narrative Resulting Agency Comment [facility] [address] [facility] [id number] us Peg King MD LAB - CHEMISTRY ORDERABLES Fin al Result [facility] INSURANCE BILL [address] [place] [address] from Last 3 Months or Most Recently Relevant to Health Maintenance Insurance [employer] Care Teams Restaurant Floor Manager Relationship Specialty Start Date End Date Jade Moss MD [address] [place] [address] [place] [id number] PCP - General Family Medicine 10/21/15 [place] [address] [place] [address] Cardiovascular Disease 11/08/11 [place] [address] [place] [address] Obstetrics and Gynecology 04/04/14 Valerie Schililng MD [address] [place] [address] Orthopedic Surgery 04/04/14 Amador Abraham OD [facility] [address] [place] [address] Mainstreaming Facilitator 04/04/14
--- OUTSIDE RECORDS SUMMARY | 2025-02-24 06:09 | XMS_ITS | Encounter Summary ---
Author Organization [facility] Address 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
--- OUTSIDE RECORDS SUMMARY | 2025-02-24 06:09 | XMS_ITS | Referral Summary ---
Author Organization [facility] Address [address] [place] [address] Care Team Providers Care Regional Medical Director Name Role Phone Juliana Orozco NP Primary Care Provider [phone] Allergies No known active allergies Medications losartan-hydroc hlorothiazide (HYZAAR) 100-25 mg per tablet Take 1 tablet by mouth daily Active rivaroxaban (XARELTO) 20 mg tabletIndicatio ns:Venous Thrombosis Take 1 tablet (20 mg total) by mouth daily. Start on day 22 (after taking 15mg BID for 21 days) 90 tablet 3 11/26/2018 Active buPROPion XL (WELLBUTRIN XL) 300 mg 24 hr tablet Take 1 tablet (300 mg total) by mouth daily 10/05/[address] (CYMBALTA) 60 mg capsule Take 1 capsule (60 mg total) by mouth daily 06/18/[address] (VOLTAREN) 75 mg EC tablet Take 1 tablet (75 mg total) by mouth 2 (two) times a day 02/01/2021 Active amoxicillin-cla vulanate (AUGMENTIN) 875-125 mg per tablet Take 1 tablet by mouth every 12 (twelve) hours for 7 days 07/21/2023 Active hydroCHLOROthia zide (HYDRODIURIL) 12.5 mg tablet Take 1 tablet (12.5 mg total) by mouth daily Active olmesartan (BENICAR) 40 mg tablet Take 1 tablet (40 mg total) by mouth daily Active Active Problems Problem Noted Date Diagnosed Date Labile hypertension 07/22/2023 Palpitations 06/22/2023 Hypertension 06/22/2023 Venous thromboembolism 06/22/2023 Social History Tobacco Use Types Packs/Day Years Used Date Smoking Tobacco: Never Tobacco Cessation:Counseling Given: Not Answered Alcohol Use Standard Drinks/Week Comments No 0 (1 standard drink = 0.6 oz pur e alcohol) Personal Safety Answer Date Recorded Have you ever been in or are you currently in a harmful physical or emotional relationship or is someone making you feel afraid or unsafe? 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 Gender Identity Not on file Sexual Orientation Not on file Last Filed Vital Signs Vital Sign Reading Time Taken Comments Blood Pressure 160/100 08/03/2023 12:10 PM CDT Pulse 81 07/22/2023 8:17 AM CDT Temperature 36.7 C (98 F) 11/26/2018 5:00 AM FLASH OVEN OPERATOR Respiratory Rate 18 11/26/2018 5:00 AM FLASH OVEN OPERATOR Oxygen Saturation 98% 07/22/2023 8:17 AM CDT Inhaled Oxygen Concentration - - Weight 96.3 kg (212 lb 6.4 oz) 07/22/2023 8:17 A M CDT Height 165.1 cm (5' 5 ) 07/22/2023 8:17 AM CDT Body Mass Index 35.35 07/22/2023 8:17 AM CDT Plan of Treatment [place] [address] [place] [address] [email or web address] [address] [email or web address] [place] [facility] ACCESS Advance Directives For more information, please contact: [phone] * Full Code (Latest Code Status on File) Date Activated Date Inactivated Comments 11/25/2018 3:18 PM 11/26/2018 1:22 PM Care Teams Regional Medical Director Relationship Specialty [place] [address] [place] [address] PCP - General Family Medicine 04/20/24
--- OUTSIDE RECORDS SUMMARY | 2025-02-24 06:09 | XMS_ITS | Clinical Summary ---
Author Organization [facility] D Address [address] [place] [address] Care Team Providers Care Bunch Breaker Machine Operator Name Role Phone Juliana Orozco NP Primary Care Provider [phone] Allergies No known active allergies Medications losartan-hydroc [...] Palpitations 06/22/2023 Hypertension 06/22/2023 Venous thromboembolism 06/22/2023 Surgical History Surgery Date Site/Laterality Comments ANKLE SURGERY Right Medical History Medical History Date Comments Hypertension Family History Medical History Relation Name Comments Hypertension Brother Heart attack Father Heart disease Father Stroke Father Hypertension Mother Relation Name Status Comments Brother Father Mother Social History Tobacco Use Types Packs/Day Years [...] on file Legal Sex Female 8:13 AM PHOTOGRAPHER Gender Identity Not on file Sexual Orientation Not on file Obstetrics History Last Filed Vital Signs Vital Sign Reading Time Taken Comments Blood Pressure 160/100 08/03/2023 12:10 PM CDT Pulse 81 07/22/2023 8:17 AM CDT Temperature 36.7 C (98 F) 11/26/2018 5:00 AM PHOTOGRAPHER Respiratory Rate 18 11/26/2018 5:00 AM PHOTOGRAPHER Oxygen Saturation 98% 07/22/2023 8:17 AM CDT Inhaled Oxygen Concentration - - Weight 96.3 kg (212 lb 6.4 oz) 07/22/2023 8:17 A M CDT Height 165.1 cm (5' 5 ) 07/22/2023 8:17 AM CDT Body Mass Index 35.35 07/22/2023 8:17 AM CDT Plan of Treatment Health Maintenance Due Date Last Done Comments Breast Cancer Screening-Mammogram 1973 Cervical Cancer Screening 1973 Colon Cancer Screening-Colonoscopy 1973 Depression Screening 1973 Hepatitis C Screening 1973 Hepatitis B Screening 1991 Regular Well Visit/Exam 18-64 1991 DTaP/Tdap/Td Vaccine (3 - Td or Tdap) 10/05/2015 10/05/2005, 02/02/2005 Zoster Vaccine (1 of 2) 2023 Covid-19 Vaccine ( - 2023-2 5 season) 2024 11/09/2020, 10/19/2020 Influenza Vaccine (Season Ended) 2025 08/08/2022, 07/05/2009, 08/05/2006 Pneumococcal vaccine <65 Aged Out No longer eligible based on patient's age to complete this topic Insurance [place] [place] [employer] Advance Directives For more information, please contact: [phone] * Full Code (Latest Code Status on File) Date Activated Date Inactivated Comments 11/25/2018 3:18 PM 11/26/2018 1:22 PM Care Teams Bunch Breaker Machine Operator Relationship Specialty Start [place] [address] [address] PCP - General Family Medicine 04/20/24
--- OUTSIDE RECORDS SUMMARY | 2025-02-24 06:09 | XMS_ITS | Data Portability ---
Author Organization [place] [facility] [place] [employer], Main Office Address [address] [place] [address] Assessment No assessment recorded. Plan of Treatment Reminders Order Date Submit Date Provider Last Modified By Organization Details Last Modified Time Details Appointments None recorded. Lab CMP, serum or plasma 2024 025 llalor [facility], [address], [place], [address], 5 08:20:18 HbA1c (hemoglobi n A1c), blood 2024 025 llalor [facility], [address], [place], [address], 5 08:20:18 TSH + free T4, serum 2024 025 llalor [facility], [address], [place], [address], 5 08:20:18 vitamin D, 25-hydroxy , total, serum 2024 025 llalor [facility], [address], [place], [address], 5 08:20:18 noninvasiv e colorectal cancer DNA + occult blood screening, QL, stool 2024 025 [email or web address] (Cologuard Orders Only), [address], [address], [facility] [place], [address], 5 08:18:18 CBC w/ auto diff 2024 025 llalor [facility], [address], [place], [address], 5 08:20:18 lipid panel, serum 2024 025 llalor [facility], [address], [address], [place], [address], 5 08:20:18 vitamin D, 25-hydroxy , total, serum [address] (Lab), [address] [place], [address], 4 10:07:19 CBC w/ auto diff [address] (Lab), [address] [place], [address], 4 10:07:19 lipid panel, serum [address] (Lab), [address] [place], [address], 4 10:07:19 glycohemog lobin, total, blood [address] (Lab), [address] [place], [address], 4 10:07:19 TSH, serum or plasma [address] (Lab), [address] [place], [address], 4 10:07:19 CMP, serum or plasma [address] (Lab), [address] [place], [address], 4 10:07:19 Referral orthopedic surgeon referral - Please call patient to schedule an appointmen tNicole Thank you. 2024 025 [email or web address] Jatin Valadez MD, [address], [place], [address], 16:29:04 Procedures None recorded. Surgeries None recorded. Imaging MAMMO, screening, digital, bilateral - Please call patient to schedule. 2024 025 [email or web address] [facility], [address], [address] [address], [place], [address], 16:38:35 Medication Orders diclofenac sodium 75 mg tablet,del ayed release 2024 025 [facility]/Pharmacy #[id number], [address] [place], [address], 5 11:00:50 bupropion HCl XL 300 mg 24 hr tablet, extended release 2024 025 [facility]Pharmacy #2510, [address] [place], [address], 5 11:00:50 olmesartan 40 mg-hydroch lorothiazi de 25 mg tablet 2024 025 [facility]/Pharmacy #2510, [address] [place], [address], 5 11:00:50 Xarelto 20 mg tablet 2024 025 [facility]acy #2510, [address] [place], [address], 5 11:00:49 olmesartan 40 mg tablet 2022 023 [employer] [id number], [address] [facility], [place], [place], [id number], 10:39:37 hydrochlor othiazide 12.5 mg capsule 2022 023 [email or web address], [address], [place], [place], [id number], 14:18:27 Patient TargetsNo targets recorded. Patient InstructionsNo instructions recorded. Reason for Referral Orthopedic Surgeon Referral for Pain of left knee joint Please call patient to schedule an appointment. Thank you. Referring Physician: Karlie De La Cruz, Family Medicine, Encounter Date: 01/03/2025 Results Created Date Observation Date Name Description Value Unit Range Abnormal Flag Note LastModifiedBy Organization Detail LastModifiedTime 02/21/2002/21/2025 TSH+F REE T4 TSH 1.540 uIU/m L 0.450- 4.500 normal Not Available [facility] ([facility]) [address] [place], [address], 02/21/2025 07:14:22 02/21/2002/21/2025 TSH+F REE T4 T4,free(dire ct) 0.89 NG/dL 0.82-1 .77 normal Not Available [facility] ([facility]) [address] [place], [address], 02/21/2025 07:14:22 02/21/20 25 02/21/2025 CBC WITH DIFFE RENTI AL/PL ATELE T WBC 4.7 x10e3 /uL 3.4-10 .8 normal Not Available [facility] ([facility]) [address] [place], [address], 02/21/2025 07:14:24 02/21/2002/21/2025 CBC WITH DIFFE RENTI AL/PL ATELE T RBC 3.90 x10e6 /uL 3.77-5 .28 normal Not Available [facility] ([facility]) [address] [place], [address], 02/21/2025 07:14:24 02/21/20 25 02/21/2025 CBC WITH DIFFE RENTI AL/PL ATELE T hemoglobin 11.3 g/dL 11.1-1 5.9 normal Not Available [facility] ([facility]) [address] [place], [address], 02/21/2025 07:14:24 02/21/20 25 02/21/2025 CBC WITH DIFFE RENTI AL/PL ATELE T hematocrit 35.1 % 34.0-4 6.6 normal Not Available [facility] ([facility]) [address] [place], [address], 02/21/2025 07:14:24 02/21/20 25 02/21/2025 CBC WITH DIFFE RENTI AL/PL ATELE T MCV 90 fL 79-97 normal Not Available [facility] ([facility]) [address] [place], [address], 02/21/2025 07:14:24 02/21/20 25 02/21/2025 CBC WITH DIFFE RENTI AL/PL ATELE T MCH 29.0 pg 26.6-3 3.0 normal Not Available [facility] ([facility]) [address] [place], [address], 02/21/2025 07:14:24 02/21/20 25 02/21/2025 CBC WITH DIFFE RENTI AL/PL ATELE T MCHC 32.2 g/dL 31.5-3 5.7 normal Not Available [facility] ([facility]) [address] [place], [address], 02/21/2025 07:14:24 02/21/20 25 02/21/2025 CBC WITH DIFFE RENTI AL/PL ATELE T RDW 13.3 % 11.7-1 5.4 Not Available [facility] ([facility]) [address] [place], [address], 02/21/2025 07:14:24 02/21/20 25 02/21/2025 CBC WITH DIFFE RENTI AL/PL ATELE T platelets 302 x10e3 /uL 150-45 0 normal Not Available [facility] ([facility]) [address] [place], [address], 02/21/2025 07:14:24 02/21/20 25 02/21/2025 CBC WITH DIFFE RENTI AL/PL ATELE T neutrophils 39 % not estab. normal Not Available [facility] ([facility]) [address] [facility], [place], [address], 02/21/2025 07:14:24 02/21/20 25 02/21/2025 CBC WITH DIFFE RENTI AL/PL ATELE T lymphs 41 % not estab. normal Not Available [facility] ([facility]) [address] [place], [address], 02/21/2025 07:14:24 02/21/20 25 02/21/2025 CBC WITH DIFFE RENTI AL/PL ATELE T monocytes 17 % not estab. normal Not Available [facility] ([facility]) [address] [place], [address], 02/21/2025 07:14:24 02/21/20 25 02/21/2025 CBC WITH DIFFE RENTI AL/PL ATELE T eos 2 % not estab. normal Not Available [facility] ([facility]) [address] [place], [address], 02/21/2025 07:14:24 02/21/20 25 02/21/2025 CBC WITH DIFFE RENTI AL/PL ATELE T basos 1 % not estab. normal Not Available [facility] ([facility]) [address] [facility], [place], [address], 02/21/2025 07:14:24 02/21/20 25 02/21/2025 CBC WITH DIFFE RENTI AL/PL ATELE T immature cells [employer] Not Available [facility] ([facility]) [address] [place], [address], 02/21/2025 07:14:24 02/21/20 25 02/21/2025 CBC WITH DIFFE RENTI AL/PL ATELE T neutrophils (absolute) 1.8 x10e3 /uL 1.4-7. 0 normal Not Available [facility] ([facility]) [address] [place], [address], 02/21/2025 07:14:24 02/21/20 25 02/21/2025 CBC WITH DIFFE RENTI AL/PL ATELE T lymphs (absolute) 2.0 x10e3 /uL 0.7-3. 1 normal Not Available [facility] ([facility]) [address] [place], [address], 02/21/2025 07:14:24 02/21/20 25 02/21/2025 CBC WITH DIFFE RENTI AL/PL ATELE T monocytes(ab solute) 0.8 x10e3 /uL 0.1-0. 9 normal Not Available [facility] ([facility]) [address] [place], [address], 02/21/2025 07:14:24 02/21/20 25 02/21/2025 CBC WITH DIFFE RENTI AL/PL ATELE T eos (absolute) 0.1 x10e3 /uL 0.0-0. 4 normal Not Available [facility] ([facility]) [address] [place], [address], 02/21/2025 07:14:24 02/21/20 25 02/21/2025 CBC WITH DIFFE RENTI AL/PL ATELE T baso (absolute) 0.1 x10e3 /uL 0.0-0. 2 normal Not Available [facility] ([facility]) [address] [place], [address], 02/21/2025 07:14:24 02/21/20 25 02/21/2025 CBC WITH DIFFE RENTI AL/PL ATELE T immature granulocytes 0 % not estab. Not Available [facility] ([facility]) [address] [facility], [place], [address], 02/21/2025 07:14:24 02/21/20 25 02/21/2025 CBC WITH DIFFE RENTI AL/PL ATELE T immature grans (abs) 0.0 x10e3 /uL 0.0-0. 1 Not Available [facility] ([facility]) [address] [facility], [place], [address], 02/21/2025 07:14:24 02/21/20 25 02/21/2025 CBC WITH DIFFE RENTI AL/PL ATELE T NRBC [employer] Not Available [facility] ([facility]) [address] [facility], [place], [address], 02/21/2025 07:14:24 02/21/20 25 02/21/2025 CBC WITH DIFFE RENTI AL/PL ATELE T hematology comments: [employer]IDENT[employer] Not Available [facility] ([facility]) [address] [place], [address], 02/21/2025 07:14:24 02/21/20 25 02/21/2025 COMP. METAB OLIC PANEL (14) glucose 101 mg/dL 70-99 above high normal Not Available [facility] ([facility]) [address] [place], [address], 02/21/2025 07:14:25 02/21/20 25 02/21/2025 COMP. METAB OLIC PANEL (14) BUN 27 mg/dL 6-24 above high normal Not Available [facility] ([facility]) [address] [place], [address], 02/21/2025 07:14:25 02/21/20 25 02/21/2025 COMP. METAB OLIC PANEL (14) creatinine 2.56 mg/dL 0.57-1 .00 above high normal Not Available [facility] ([facility]) [address] [facility] [place], [address], 02/21/2025 07:14:25 02/21/20 25 02/21/2025 COMP. METAB OLIC PANEL (14) eGFR 22 mL/mi n/1.7 3 >59 below low normal Not Available [facility] ([facility]) [address] [facility] [place], [address], 02/21/2025 07:14:25 02/21/20 25 02/21/2025 COMP. METAB OLIC PANEL (14) BUN/creatini ne ratio 11 9-23 normal Not Available [facility] ([facility]) [address] [facility], [place], [address], 02/21/2025 07:14:25 02/21/20 25 02/21/2025 COMP. METAB OLIC PANEL (14) sodium 139 mmol/ L 134-14 4 normal Not Available [facility] ([facility]) [address] [facility] [place], [address], 02/21/2025 07:14:25 02/21/20 25 02/21/2025 COMP. METAB OLIC PANEL (14) potassium 4.0 mmol/ L 3.5-5. 2 normal Not Available [facility] ([facility]) [address] [facility] [place], [address], 02/21/2025 07:14:25 02/21/20 25 02/21/2025 COMP. METAB OLIC PANEL (14) chloride 101 mmol/ L 96-106 normal Not Available [facility] ([facility]) [address] [facility] [place], [address], 02/21/2025 07:14:25 02/21/20 25 02/21/2025 COMP. METAB OLIC PANEL (14) carbon dioxide, total 19 mmol/ L 20-29 below low normal Not Available [facility] ([facility]) [address] [facility] [place], [address], 02/21/2025 07:14:25 02/21/20 25 02/21/2025 COMP. METAB OLIC PANEL (14) calcium 9.6 mg/dL 8.7-10 .2 normal Not Available [facility] ([facility]) [address] [facility] [place], [address], 02/21/2025 07:14:25 02/21/20 25 02/21/2025 COMP. METAB OLIC PANEL (14) protein, total 7.6 g/dL 6.0-8. 5 normal Not Available [facility] ([facility]) [address] [facility] [place], [address], 02/21/2025 07:14:25 02/21/20 25 02/21/2025 COMP. METAB OLIC PANEL (14) albumin 4.7 g/dL 3.8-4. 9 normal Not Available [facility] ([facility]) [address] [facility] [place], [address], 02/21/2025 07:14:25 02/21/20 25 02/21/2025 COMP. METAB OLIC PANEL (14) globulin, total 2.9 g/dL 1.5-4. 5 Not Available [facility] ([facility]) [address] [facility] [place], [address], 02/21/2025 07:14:25 02/21/20 25 02/21/2025 COMP. METAB OLIC PANEL (14) bilirubin, total <0.2 mg/dL 0.0-1. 2 Not Available [facility] ([facility]) [address] [facility] [place], [address], 02/21/2025 07:14:25 02/21/20 25 02/21/2025 COMP. METAB OLIC PANEL (14) alkaline phosphatase 116 IU/L 44-121 normal Not Available [facility] ([facility]) [address] [place], [address], 02/21/2025 07:14:25 02/21/20 25 02/21/2025 COMP. METAB OLIC PANEL (14) AST (SGOT) 25 IU/L 0-40 normal Not Available [facility] ([facility]) [address] [place], [address], 02/21/2025 07:14:25 02/21/20 25 02/21/2025 COMP. METAB OLIC PANEL (14) ALT (SGPT) 19 IU/L 0-32 normal Not Available [facility] ([facility]) [address] [place], [address], 02/21/2025 07:14:25 02/21/20 25 02/21/2025 LIPID PANEL cholesterol, total 220 mg/dL 100-19 9 above high normal Not Available [facility] ([facility]) [address] [place], [address], 02/21/2025 07:14:26 02/21/20 25 02/21/2025 LIPID PANEL triglyceride s 181 mg/dL 0-149 above high normal Not Available [facility] ([facility]) [address] [place], [address], 02/21/2025 07:14:26 02/21/20 25 02/21/2025 LIPID PANEL HDL cholesterol 45 mg/dL >39 normal Not Available [facility]) [address] [place], [address], 02/21/2025 07:14:26 02/21/20 25 02/21/2025 LIPID PANEL VLDL cholesterol piotr 33 mg/dL 5-40 Not Available [facility] ([facility]) [address] [place], [address], 02/21/2025 07:14:26 02/21/20 25 02/21/2025 LIPID PANEL LDL [facility] 142 mg/dL 0-99 above high normal Not Available [facility] ([facility]) [address] [facility], [place], [address], 02/21/2025 07:14:26 02/21/2002/21/2025 LIPID PANEL LDL calc 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 6 above high normal Predi abete s: 5.7 - 6.4 Diabe juan j: >6.4 Glyce cata contr ol for adult s with diabe juan j: <7.0 Not Available [facility] ([facility]) [address] [facility], [place], [address], 02/21/2025 07:14:27 02/21/2002/21/2025 VITAM IN D, 25-HY DROXY vitamin D, 25-hydroxy 46.8 NG/mL 30.0-1 00.0 Vitam in D defic iency has been defin ed by the Insti tute of Medic ine and an Endoc rine Socie ty pract ice guide line as a level of serum 25-OH vitam in D less than 20 ng/mL (1,2) . The Endoc rine Socie ty went on to [facility] er defin e vitam in D insuf ficie ncy as a level betwe en 21 and 29 ng/mL (2). 1. IOM (Inst itute of Medic ine). 2010. Dieta ry refer ence intak es for calci um and D. Tamra ross [place]: The [facility] [employer] . 2. Shun woody [place], Florencio flanagan [place], Ismael off-F errjb i CLIFFORD, et al. Evalu ation , treat ment, and preve ntion of vitam in D defic iency : an Endoc rine Socie ty clini piotr pract ice guide line. JCEM. 2010; 96(7) :1911 -30. Not Available [facility] ([facility]) [address], [place], [address], 02/21/2025 07:14:28 Result Notes None recorded. Problems Name Problem SNOMED Code Status Onset Date Resolution Date Notes Provider Name and Address Organization Details Recorded Time Benign essential hypertensi on 6273990 Active Not Available [facility] 3 17:29:54 Plantar fasciitis of left foot 0566835754567 9101 Active 2019 Not Available [facility] 3 17:29:54 Deep venous thrombosis 459555515 Active Not Available [facility] 3 17:29:54 Pain of left ankle joint 6847438647757 9103 Active 2020 Not Available [facility] 3 17:29:54 Mammograph y abnormal 231468887 Active Not Available [facility] 3 17:29:54 Postoperat nina visit 087360066 Active 2019 Not Available [facility] 3 17:29:54 Insomnia 502773054 Active Not Available [facility] 3 17:29:54 Knee pain Active Not Available [facility] 3 17:29:54 Hypertensi ve disorder 40125514 Active Not Available [facility] 3 17:29:54 Ingrowing toenail 377520257 Active 2021 Not Available [facility] 3 17:29:54 Deep venous thrombosis of lower extremity 353975259 Active Not Available [facility] 3 17:29:54 Dizziness 219057169 Active Not Available [facility] 3 17:29:54 Eczema 75651150 Active Not Available [facility] 3 17:29:55 Blood coagulatio n disorder 72069495 Active Not Available [facility] 3 17:29:55 Kidney stone 77967573 Active Not Available [facility] 3 17:29:55 Cobalamin deficiency 529046217 Active 2022 Saray Zarco CMA null, [place] [facility] 3 17:13:26 Bronchitis 70493132 Active 2022 PAM Pisano [address], [address] [address], [place], [address] , [employer] [facility] 3 14:29:49 Laryngitis 14058029 Active 2022 PAM Pisano [address], [address] [address], [place], [address] , [employer] [facility] 3 14:30:40 Tachycardi a 6647549 Active 2022 Jade oMss MD [address], [address] [address], [place], [address] , [employer] [facility] 3 11:51:05 Essential hypertensi on 85885719 Active 2022 Jade Moss MD [address] [facility], [address] [address], [place], [address] , [employer] [facility] 3 11:53:45 Anti-nucle ar factor detected 323132450 Active 2022 Jade Moss MD [address] [facility], [address] [address], [place], [address] , [employer] [facility] 3 11:01:05 Vitamin D deficiency 39016157 Active 2022 Jade Moss MD [address] [facility], [address] [address], [place], [address] , [employer] [facility] 3 11:02:21 Pain of left knee joint 7651702444082 07 Active 2022 Yessica sales, [employer] [facility] [employer] [facility] 3 12:50:51 Streptococ piotr sore throat 14800616 Active 2022 LULU Macias [address], [facility] [address], [place], [address] , [employer] [facility] [employer] [facility] 3 12:52:59 Streptococ piotr tonsilliti s 42403479 Active 2022 LULU Macias [address], [address], [place], [address] , [place] [facility] [place] [facility] 3 13:01:56 Palpitatio ns 22047160 Active 2022 Jade Moss MD [address], [address], [place], [address] , [place] [facility] 3 18:00:03 COVID-19 473814553 Active 2023 LULU Mireles [address], [address], [place], [address] , [place] [facility] 4 12:31:45 Cough 47347284 Active 2023 LULU Mireles [address], [address], [place], [address] , [place] [facility] 4 12:31:51 Loss of consciousn ess 830265506 Active 2023 LULU Macias [address], [address], [place], [address] , [employer] [facility] 4 14:25:27 Forgets recent activities 650586280 Active 2023 LULU Macias [address], [address], [place], [address] , [employer] [facility] 4 14:54:50 Memory lapses 165068907 Active 2023 LULU Macias [address], [address], [place], [address] , [place] [facility] 4 15:04:11 Mixed anxiety and depressive disorder 892624531 Active 2024 LULU Mireles [address], [address], [place], [address] , [place] [facility] 5 10:56:03 Creatinine level - finding 748622972 Active 2024 LULU Mireles [address] [facility], [address], [place], [address] , [facility] [employer] [facility] 5 10:55:51 Problem Notes None recorded. Procedures Surgical History Date Name Laterality Status Provider Name and Address Organization Details Recorded Time 3 Ortho - Cortisone Injection completed Jatin Valadez MD [address] [facility], [facility] [address], [place], [address], [facility] [employer] [facility] 05/18/2023 13:13:23 endometrial ablation completed Inez Ferrara MA [facility] [employer] [facility] 01/03/2025 10:41:59 Imaging Results None recorded. Procedure Notes None recorded. Medical Equipment None Reported. Allergies No known drug allergies Medications Name Sig Start Date Stop Date Status Note LastModified by Organization Details LastModified Time amoxicillin 500 mg capsule 12/03 completed Not Available Not Available Not Available clindamycin HCl 300 mg capsule Take 1 capsule 3 times a day by oral route for 7 days. active Not Available Not Available No t Available azithromyci n 250 mg tablet TAKE 2 TABLETS BY MOUTH TODAY, THEN TAKE 1 TABLET DAILY FOR 4 DAYS 12/03 completed Not Available Not Available Not Available aspirin 325 mg tablet Take 1 tablet every day by oral route. 11/29 completed Not Available Not Available Not Available fluconazole 150 mg tablet 1 tablet po once and may repeat in 3 days if symptoms presist. active Not Available Not Available No t Available benzonatate 200 mg capsule TAKE 1 CAPSULE BY MOUTH THREE TIMES DAILY 07/13 completed Not Available Not Available Not Available hydrocodone 5 mg-acetamin ophen 325 mg tablet 12/03 completed Not Available Not Available Not Available ondansetron HCl 8 mg tablet 03/25 completed Not Available Not Available Not Available prednisone 20 mg tablet Take 2 tablets every day by oral route for 5 days. active Not Available Not Available No t Available propranolol ER 60 mg capsule,24 hr,extended release TAKE 1 CAPSULE BY MOUTH EVERY DAY 01/03 completed Not Available Not Available Not Available metronidazo le 500 mg tablet Take 4 tablets every day by oral route for 1 day. active Not Available Not Available No t Available ciprofloxac in 500 mg tablet Take 1 tablet every 12 hours by oral route for 10 days. 03/25 completed Not Available Not Available Not Available sulfamethox azole 800 mg-trimetho prim 160 mg tablet Take 1 tablet every 12 hours by oral route for 7 days. active Not Available Not Available No t Available tramadol 50 mg tablet 03/25 completed Not Available Not Available Not Available ondansetron 8 mg disintegrat ing tablet Place 1 tablet 3 times a day by transling ual route as needed. 12/03 completed Not Available Not Available Not Available losartan 100 mg-hydrochl orothiazide 25 mg tablet TAKE ONE Tablet BY MOUTH EVERY DAY 12/03 completed Not Available Not Available Not Available oxycodone-a cetaminophe n 5 mg-325 mg tablet 11/29 completed Not Available Not Available Not Available propranolol 10 mg tablet 1 po tid prn 01/03 completed Not Available Not Available Not Available tamsulosin 0.4 mg capsule Take 1 capsule every day by oral route. active Not Available Not Available No t Available Kenalog 10 mg/mL suspension for injection Take 1 mL by injection route. 08/04 completed [facility]: 0003- 0494- 20 Not Available Not Available Not Available benzonatate 100 mg capsule Take 1 capsule 3 times a day by oral route as needed. active Not Available Not Available No t Available triamcinolo ne acetonide 40 mg/mL suspension for injection Take 1 mL by injection route. 01/03 completed Not Available Not Available Not Available cyanocobala min (vit B-12) 1,000 mcg/mL injection solution Inject 1 mL every month by subcutane ous route. 07/13 completed Not Available Not Available Not Available triamcinolo ne acetonide 0.1 % topical ointment APPLY TO AFFECTED AREA TWICE A DAY NEEDED 12/03 completed Not Available Not Available Not Available progesteron e micronized 200 mg capsule TAKE 1 TAB BY MOUTH EVERYDAY X 14 DAYS THEN 14 DAYS OFF 11/29 completed Not Available Not Available Not Available hydrochloro thiazide 12.5 mg capsule TAKE 1 CAPSULE BY MOUTH EVERY DAY 06/23 completed Not Available Not Available Not Available diclofenac sodium 75 mg tablet,navneet yed release Take 1 tablet twice a day by oral route as needed. 2024 active Not Available Not Available Not Avai lable montelukast 10 mg tablet Take 1 tablet every day by oral route. active Not Available Not Available No t Available codeine 10 mg-guaifene sin 100 mg/5 mL oral liquid 11/29 completed Not Available Not Available Not Available hydrochloro thiazide 25 mg tablet TAKE 1 TABLET BY MOUTH EVERY DAY 06/23 completed Not Available Not Available Not Available methylpredn isolone 4 mg tablets in a dose pack Take as directed 11/29 completed Not Available Not Available Not Available progesteron e micronized 100 mg capsule TAKE ONE CAPSULE BY MOUTH EVERY DAY FOR 14 DAYS THEN OFF FOR 14 DAYS active Not Available Not Available No t Available amoxicillin 875 mg-potassiu m clavulanate 125 mg tablet TAKE 1 TABLET BY MOUTH EVERY 12 HOURS FOR 7 DAYS 08/04 completed Not Available Not Available Not Available olmesartan 40 mg tablet TAKE 1 TABLET BY MOUTH EVERY DAY 01/03 completed Not Available Not Available Not Available olmesartan 40 mg-hydrochl orothiazide 25 mg tablet TAKE 1 TABLET BY MOUTH EVERY DAY active Not Available Not Available No t Available bupropion HCl XL 300 mg 24 hr tablet, extended release TAKE ONE Tablet BY MOUTH EVERY DAY 2024 active Not Available Not Available Not Avai lable bupropion HCl XL 150 mg 24 hr tablet, extended release TAKE ONE Tablet BY MOUTH EVERY DAY 12/03 completed Not Available Not Available Not Available duloxetine 60 mg capsule,del ayed release TAKE 1 CAPSULE BY MOUTH EVERY DAY 07/13 completed Not Available Not Available Not Available Glucosamine 12/03 completed Not Available Not Available Not Available Vitamin D3 2,000 Units daily active Not Available Not Available No t Available multivitami n active Not Available Not Available Not Available ketorolac 30 mg/mL injection solution 1 ml IM x 1 11/29 completed Not Available Not Available Not Available ropivacaine (PF) 5 mg/mL (0.5 %) injection solution Take 4 mL by injection route. 08/04 completed [facility] [id number] [phone] Not Available Not Available Not Available Xarelto 15 mg tablet TAKE 1 TABLET BY MOUTH EVERY DAY 10/07 completed Not Available Not Available Not Available Xarelto 20 mg tablet TAKE 1 TABLET BY MOUTH EVERY DAY 2024 active Not Available Not Available Not Avai lable Multi Vitamin 12/03 completed Not Available Not Available Not Available Zorvolex 35 mg capsule Take 1 capsule twice a day by oral route. active Not Available Not Available No t Available Ozempic 0.25 mg or 0.5 mg (2 mg/1.5 mL) subcutaneou s pen injector INJECT 0.5 MG EVERY WEEK BY SUBCUTANE OUS ROUTE FOR 84 DAYS. 05/18 completed Not Available Not Available Not Available BD Natalee 2nd Gen Pen Needle 32 gauge x 5/32 USE DIRECTED WITH OZEMPIC 05/18 completed Not Available Not Available Not Available Ozempic 0.25 mg or 0.5 mg (2 mg/3 mL) subcutaneou s pen injector 0.5 mg sc qweek 06/16 completed Not Available Not Available Not Available Vitals Date Recorded Body height Body temperature Heart rate Oxygen saturation Oxygen saturation in Arterial blood by Pulse oximetry Body mass index (BMI) Body weight Systolic blood pressure Diastolic blood pressure Provider Name and Address Organization Details Last Updated DateTime 3 165.1 cm 98 [degF] 85 /min 96 % 96 % 35.3 kg/m2 26816.5 8 g 146 mm[Hg] 92 mm[Hg] She Loyd RN [facility] [employer] 3 16:38:12 Date Recorded Body height Body mass index (BMI) Body weight Body temperature Heart rate Oxygen saturation Oxygen saturation in Arterial blood by Pulse oximetry Systolic blood pressure Diastolic blood pressure Provider Name and Address Organization Details Last Updated DateTime 4 165.1 cm 35.1 kg/m2 04872.9 9 g 98.1 [degF] 90 /min 98 % 98 % 182 mm[Hg] 112 mm[Hg] She Loyd RN [facility] [employer] [facility] 4 11:10:50 Date Recorded Body height Body mass index (BMI) Body weight Body temperature Heart rate Oxygen saturation Oxygen saturation in Arterial blood by Pulse oximetry Systolic blood pressure Diastolic blood pressure Provider Name and Address Organization Details Last Updated DateTime 4 165.1 cm 34.8 kg/m2 20001.8 1 g 97.6 [degF] 87 /min 100 % 100 % 144 mm[Hg] 96 mm[Hg] Elisabeth Griffiths RN [facility] [employer] [facility] 4 14:21:42 Date Recorded Body height Body mass index (BMI) Body weight Body temperature Heart rate Oxygen saturation Oxygen saturation in Arterial blood by Pulse oximetry Systolic blood pressure Diastolic blood pressure Provider Name and Address Organization Details Last Updated DateTime 4 165.1 cm 34.9 kg/m2 83451.4 g 98.2 [degF] 81 /min 99 % 99 % 144 mm[Hg] 80 mm[Hg] She Loyd RN [facility] [employer] [facility] 4 15:58:03 Date Recorded Body height Body mass index (BMI) Body weight Body temperature Heart rate Oxygen saturation Oxygen saturation in Arterial blood by Pulse oximetry Systolic blood pressure Diastolic blood pressure Provider Name and Address Organization Details Last Updated DateTime 5 165.1 cm 38.1 kg/m2 301848. 65 g 97.8 [degF] 84 /min 97 % 97 % 134 mm[Hg] 86 mm[Hg] Inez Ferrara MA [facility] [employer] [facility] 5 10:38:56 Social History Question Answer Notes LastModified by Demeure Details LastModified Time Tobacco Smoking Status Never Smoker Not Available [facility] 12/03/2022 17:28:48 What Is Your Level Of Caffeine Consumption? None Information not available 01/03/2025 Have There Been Any Changes To Your Family Or Social Situation? No Information no t available 01/03/2025 What Was The Date Of Your Most Recent Tobacco Screening? 01/03/2025 Information not available 01/03/2025 Do You Use Your Seat Belt Or Car Seat Routinely? Yes Information not available 01/03/2025 Do You Participate In Social Media? Yes Information not available 01/03/2025 Sex: Unknown Functional Status Question Answer Note LastModified by [employer] Details LastModified Time Do you use any illicit or recreational drugs? No Information not available 01/03/2025 Do you or have you ever used any other forms of tobacco or nicotine? No Information not available 01/03/2025 What is your level of alcohol consumption? None [email or web address] Information not available 05/18/2023 Mental Status Question Answer Note LastModified by Organization D etails LastModified Time Do you feel stressed (tense, restless, nervous, or anxious, or unable to sleep at night)? [id number] Information not available 01/03/2025 Family History Relationship Description Onset Age of this Age Resolved Age Notes LastModified by Organization Details LastModified Time Mother Essential hypertension [id number] Not available 12/03/2022 17:28:59 Mother Uterine leiomyoma MIGRATION.236 [id number] Not available 12/03/2022 17:28:59 Mother Fibrocystic changes of bilateral breasts MIGRATION.741 [id number] Not available 12/03/2022 17:28:59 Brother Essential hypertension MIGRATION.964 [id number] Not available 12/03/2022 17:28:59 Brother Deep venous thrombosis Matern al side MIGRATION.699 [id number] Not available 12/03/2022 17:28:59 Father Congestive heart failure MIGRATION.328 [id number] Not available 12/03/2022 17:28:59 Father Myocardial infarction x 2 MIGRATION.233 [id number] Not available 12/03/2022 17:28:59 Father Sleep apnea MIGRATION.03 0 [id number] Not available 12/03/2022 17:28:59 Father Essential hypertension MIGRATION.088 [id number] Not available 12/03/2022 17:28:59 Father Tuberculosis MIGRATION.0 30 [id number] Not available 12/03/2022 17:28:59 Medical History Condition Response ARTHRITIS Y HYPERTENSION Y ANEMIA/BLOOD DISORDER Y Gynecological History Statement/Question Response How many live births 2 Date of Last Colonoscopy Most Recent Bone Density Date of LMP Date of Last Pap Smear Current Control Method Menopause Most Recent Mammogram Obstetrics History GPAL:G 5 P 2 0 3 2 Type Value Multiple Births 0 Full Term 2 Induced 0 Spontaneous 3 Premature 0 Living 2 Ectopics 0 Total 5 Immunizations Vaccine Type Date Status Note Provider Nam e and Address Organization Details Recorded Time Influenza, split virus, quadrivalent, PF 08/08/2022 completed Not Available [employer] 17:30:33 Influenza, split virus, quadrivalent, PF 07/24/2023 completed Gisel Santiago RN [facility], [place] - [facility] 07/24/2023 13:19:12 Past Encounters Encounter ID Performer Location Encounter Start Date Encounter Closed Date Diagnosis/Indication Diagnosis SNOMED-CT Code Diagnosis ICD10 Code Diagnosis Note [id number] Jade Moss MD [facility] [address] [place] [address] 12/03/2021 00:00:00 01/01/2022 20:17:39 [id number] [facility] [place] [address] [place] [address] 04/21/2022 00:00:00 04/22/2022 08:28:24 [id number] [facility] [place] [address] [facility] [address] [place] [address] 07/21/2022 00:00:00 07/21/2022 14:04:01 [id number] Jade Moss MD [facility] Primary Care [address] [place] [address] 08/06/2022 00:00:00 08/06/2022 18:15:13 [id number] Jatin Valadez MD [facility]_[address] [address] 05/18/2023 12:48:22 05/18/2023 14:54:17 Pain of left knee joint 8587083046 54433 M25.059 [id number] Jade Moss MD [facility] Primary Care [facility] [address] [facility] [address] [place] [address] 08/04/2023 15:36:50 08/04/2023 17:31:25 Essential hypertension 69770364 I10 R00.0 Tachycardi a improved with lower dose of olmesartan /hctz 40/25 mg 1/2 tab daily but bp elevatedd/ c olmesartan /hctzbegin olmesartan 40 mg dailybegin hctz 12.5 mg dailybp monitor ordered by htn specialist f/u with cardiology prn Tachycardia 2127853 R00. 0 like autonomic dysfunctio n due to long covidsome improvemen t with decreased blood pressure dosagecann ot tolerate beta david due to fatigueact ivities as toleratedf /u with cardiology prn [id number] LULU Macias [facility] Primary Care [address] [place] [address] 06/16/2024 11:03:52 06/16/2024 11:39:09 Essential hypertension 08515665 I10 R00.0 bp 182/112, 90 some clifford, no cp, sobalready sees cardiology -no f/u scheduled, last time she saw them was jul of last yeardrinks 2-3L water/days truggles with insomniach ecks bp at home couple times/week , notes normal ranges [id number] LULU Macias [facility] Primary Care [address] [place] [address] 06/23/2024 14:13:35 06/23/2024 14:34:09 Memory lapses 184169408 R41.3 pt unsure if she recently hit her head, noting periods of her day that she cant rememberve rbalizes that she called EMS-was taken to [facility] AMA d/t pt not being appropriat wm evaluateds he would like paperwork to be filled out for work-would like to remain off work until the beginning the 30declin es imagingdec lines concussion specialist seye exam wnleval with imaging or through specialist if more time off needed [id number] LULU Mireles [facility] Primary Care [address] [place] [address] 07/13/2024 15:50:51 07/13/2024 16:32:57 Adult health examination 259972644 Z00.00 Discussed medication compliance and routine follow up.Discuss ed healthy diet and routine exercise.Oralia barrwed vaccine records and made recommenda tions as needed.Enc ouraged annual eye and dental exams, as well as twice yearly dental cleanings. Will check screening labs as listed below. Essential hypertension 37462495 I10 R00.0 144/80 Insomnia 463847642 G47.0 0 Vitamin D deficiency 347 94019 E55.9 Body mass index 30+ - obesity 993139982 Z68.34 Discussed healthy diet and routine exercise. [id number] LULU Mireles 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 Will check screening labs as listed below. Health Concerns Section Related Observation LastModified by Organization Detai ls LastModified Time None Recorded Concern Status LastModified by Organization Details LastModified Time None Recorded Advance Directives Directive None Recorded Payers Encounter Date Sequence Insurance Name Policy Number Policy Saez Covered Member ID Saez Member ID Guarantor Name 08/04/2023 1 [place] [id number] [employer] Macdonald [place] [id number] Delora Gurrola 06/16/2024 1 [employer] [id number] [employer] Macd[employer] [place] [id number] Delora Gurrola 06/23/2024 1 [place] [id number] [employer] [id number] Delora Gurrola 07/13/2024 1 [facility] [id number] Sari Gurrola [id number] Delora Gurrola 01/03/2025 1 [facility] [id number] Sari Gurrola [id number] Sari Gurrola Notes Date Note Type Note Provider Name and Address Organization Details Recorded Time 08/04/2023 text/html Here for f/u on htn. Since last appt, saw cardiology who dx autonomic dysfunction, may be tied to long covid. Saw htn specialist who decreased olmesartan/hctz 40/12.5 mg daily to 1/2 tab daily. She has had improvement in episodes of tachycardia but bp is elevated. Running 140s/90s. Still has fatigue when using beta david. Stress echo showed no acute changes. Will have bp monitor placed on Thursday. Jade Moss MD [address], [place], [address], [employer] 08/04/2023 17:28:49 06/16/2024 text/html pt is here for b p f/u LULU Macias [address], [place], [address], [employer] 06/16/2024 11:40:25 06/23/2024 text/html pt is here for recent memory changes LULU Macias [address], [address], [place], [address], [employer] 06/23/2024 15:10:30 07/13/2024 text/html Patient is a 48 year old female that presents to the office for annual wellness. Patient reports she is doing well on her current medications. Patient reports her blood pressure has been back to normal since realizing the pharmacy was not filling the correct medication. Patient follows up with cardiology annually, is due for an appt. Patient has been back to work for one week since her suspected concussion. Patient reports vision is back to normal however, she is still having intermittent headaches. Patient is needing return to work papers filled out as she went to work today and no access to anything. Patient denies all other medical concerns at this time including chest pain and shortness of breath, nausea vomiting and diarrhea. labs-orderedMammog priyanka-declinesColono scopy- Cologuard WE-sees [id number]-MD DTdap-UTD LULU Mireles [address], [place], [address], [employer] 07/14/2024 08:47:17 01/03/2025 text/html Patient is a 49 year old female that presents to the office for follow up. Patient reports she is doing well overall and has no concerns at this time. labs-ordered ([facility] LULU Mireles [address], [place], [address], [employer] 01/04/2025 12:52:30 OBGyn Episode No OBEpisode recorded.
[2025-02-24] MEDS: MORPHINE SULFATE (*CRX) 4 MG/ML INJ IV PUSH (06:10)
[2025-02-24] MEDS: SODIUM CHLORIDE 0.9% IV 1,000 ML 999 ML IV CONT (06:32)
[2025-02-24 06:45] LABS: Magnesium 1.9 mg/dL (1.6-2.3)
[2025-02-24 07:47] VITALS: BP 131/93; PULSE 74; RESP 18; O2SAT 100
[2025-02-24 07:50] LABS: Add Urine Microscopic? NO; Appearance Urine Clear (Clear); Bilirubin Urine Negative (Negative); Blood Urine Negative (Negative); Color Urine Yellow (Yellow); Glucose Urine UA Negative (Negative); Ketones Urine Negative (Negative); Leukocyte Esterase Ur Negative LEU/UL (Negative); Nitrate Urine Negative (Negative); Protein Urine Negative (Negative); Specific Grav Ur > 1.045 (1.001-1.035); Urobilinogen Urine 0.2 mg/dL (<2.0)
[2025-02-24] MEDS: TAMSULOSIN HCL 0.4 MG CAPSULE PO (07:59)
[2025-02-24] MEDS: PROCHLORPERAZINE EDISYLATE 10 MG/2 ML VIAL 5 MG IV PUSH (07:59)
[2025-02-24] MEDS: KETOROLAC 15 MG/ML VIAL (*BKC) IV PUSH (08:00)
[2025-02-24 08:50] VITALS: BP 110/74; PULSE 72; RESP 18; O2SAT 100
== END 2025-02-24 08:52 | disposition home or self-care (01) ==
PROVIDERS: Student in an Organized Health Care Education/Training Program; Emergency Provider Emergency Medicine; PCP Nurse Practitioner Family
DX: N18.9 Chronic kidney disease, unspecified (principal); D64.9 Anemia, unspecified; N20.0 Calculus of kidney; N23 Unspecified renal colic
CPT/HCPCS: 36415; 74177; 80053; 81003; 83690; 83735; 85025; 96361; 96374; 96375; 99284; A9270; J0780; J1885; J2270; J2405; J7030; Q9967

== ENCOUNTER 2025-03-18 09:23 | Outpatient (CLI) | payer OTHER, SELFPAY ==
--- NOTE | ~2025-03-18 | US_ITS ---
US renal BI 03/18/2025 10:11 Procedure: Realtime transabdominal ultrasound of the kidneys and bladder. Indication: Increased blood chemistry Comparison: No prior studies for comparison. Findings: Renal echotexture is normal bilaterally without hydronephrosis, contour deforming mass or r enal calculus. The right kidney measures 10.8 cm and left kidney measures 10.4 cm. Bladder within no rmal limits. Impression: 1: Unremarkable renal ultrasound. No stones, masses or hydronephrosis. Reviewed, dictated and finalized at location B. Impression: 1: Unremarkable renal ultrasound. No stones, masses or hydronephrosis.
--- NOTE | ~2025-03-18 | MM_ITS ---
EXAMINATION: MM screening cady BI w parminder HISTORY: Screening TECHNIQUE: Craniocaudal and mediolateral oblique 3-D tomosynthesis images were obtained and synthetic 2-D images were generated. CAD analysis was submitted and interpreted. COMPARISON: No prior mammogram is available for comparison at this institution. BREAST PARENCHYMAL COMPOSITION: Not dense: There are scattered areas of fibroglandular density. FINDINGS: There is no evidence of suspicious mass, calcification, or architectural distortion to sugg est malignancy in either breast. There has been no suspicious interval change. IMPRESSION: 1. No mammographic evidence of malignancy. 2. Recommend routine screening mammography in one year. BI-RADS Category 1: Negative Reviewed, dictated and finalized at location A.
== END 2025-03-18 09:24 | disposition home or self-care (01) ==
LOC: MICIMG 09:23
PROVIDERS: PCP Nurse Practitioner Family; Visit Provider Nurse Practitioner Family
DX: Z12.31 Encounter for screening mammogram for malignant neoplasm of breast (principal); M54.59 Other low back pain; R79.89 Other specified abnormal findings of blood chemistry
CPT/HCPCS: 76775; 77063; 77067